=== PATIENT | male | born 1970 | race Caucasian/White ===

== ENCOUNTER 2020-03-02 12:44 | Emergency (ER) | payer BC ==
[2020-03-02 13:34] VITALS: RESP 16; TEMP 98.4
[2020-03-02] MEDS ORDERED: SODIUM CHLORIDE 0.9% 500 ML 500 ML IV ONE (14:00)
--- NOTE | 2020-03-02 14:05 | ED ---
General Adult HPI - General Chief complaint: Headache Stated complaint: headache, not feeling well.. Sent by [employer] Time Seen by Provider: 03/02/20 13:51 Source: patient, RN notes reviewed, old records reviewed Mode of arrival: ambulatory Limitations: no limitations - History of Present Illness Initial comments: 49-year-old male presented for evaluation of headache. Patient had developed a headache 48 hours ago which has nearly completely resolved. He states he was given ago for a run today had some minimal had pressure and his encouraged him to present for evaluation. He started at urgent care and was sent to the emergency department for evaluation of this headache. He states he was exertional, during intercourse and was fairly sudden in onset. Headache gradually improved with rest, no specific treatment. He was nearly headache free at the time of evaluation. Denies focal numbness or weakness. Denies fever. Denies cough. No family history of brain aneurysm. Patient is otherwise healthy. - Related Data Allergies Allergy/AdvReac Type Severity Reaction Status Date / Time clarithromycin [From Biaxin] Allergy Unknown Verified 03/02/20 13:34 Penicillins Allergy Unknown Verified 03/02/20 13:34 Review of Systems ROS Statement: Those systems with pertinent positive or pertinent negative responses have been documented in the HPI. ROS Other: All systems not noted in ROS Statement are negative. Past Medical History Past Medical History: GERD/Reflux Past Surgical History: Tonsillectomy Past Psychological History: No Psychological Hx Reported Smoking Status: Never smoker Past Alcohol Use History: Occasional Past Drug Use History: None Reported General Exam Limitations: no limitations General appearance: alert, in no apparent distress Head exam: Present: atraumatic, normocephalic Eye exam: Present: normal appearance, PERRL ENT exam: Present: normal exam Neck exam: Present: normal inspection. Absent: tenderness, meningismus Respiratory exam: Present: normal lung sounds bilaterally. Absent: respiratory distress, wheezes Cardiovascular Exam: Present: regular rate, normal rhythm GI/Abdominal exam: Present: soft. Absent: distended, tenderness, guarding Extremities exam: Present: normal inspection, normal capillary refill. Absent: pedal edema Neurological exam: Present: alert, oriented X3, CN II-XII intact, other (No ataxia, normal finger to nose, 5 out of 5 strength in all extremities.). Absent: motor sensory deficit Psychiatric exam: Present: normal affect, normal mood Skin exam: Present: warm, dry, intact. Absent: cyanosis, diaphoretic Course Vital Signs 03/02/20 13:31 Temperature 98.4 F Pulse Rate 60 Respiratory 16 Rate Blood Pressure 143/75 O2 Sat by Pulse 98 Oximetry Medical Decision Making - Medical Decision Making Headache. CT was performed which is negative for intracranial hemorrhage or mass effect. CT angiography was performed which is negative for aneurysmal change. Patient has minimal headache, less than 1 out of 10 at the time my eval uation. He will be given outpatient neurology follow-up regarding this headache. If headache returns or is any change he will be presented to the emergency department for evaluation. - Lab Data Result diagrams: 03/02/20 14:17 03/02/20 14:17 Lab Results 03/02/20 03/02/20 Range/Units 14:17 14:17 WBC 5.8 (3.8-10.6) k/uL RBC 5.00 (4.30-5.90) m/uL Hgb 14.1 (13.0-17.5) gm/dL Hct 42.5 (39.0-53.0) % MCV 85.0 (80.0-100.0) fL MCH 28.2 (25.0-35.0) pg MCHC 33.2 (31.0-37.0) g/dL RDW 12.1 (11.5-15.5) % Plt Count 231 (150-450) k/uL Neutrophils % 50 % Lymphocytes % 37 % Monocytes % 6 % Eosinophils % 3 % Basophils % 1 % Neutrophils # 2.9 (1.3-7.7) k/uL Lymphocytes # 2.2 (1.0-4.8) k/uL Monocytes # 0.3 (0-1.0) k/uL Eosinophils # 0.2 (0-0.7) k/uL Basophils # 0.1 (0-0.2) k/uL Sodium 138 (137-145) mmol/L Potassium 4.3 (3.5-5.1) mmol/L Chloride 107 (98-107) mmol/L Carbon Dioxide 23 (22-30) mmol/L Anion Gap 8 mmol/L BUN 15 (9-20) mg/dL Creatinine 0.92 (0.66-1.25) mg/dL Est GFR (CKD-EPI)AfAm >90 (>60 ml/min/1.73 sqM) Est GFR (CKD-EPI)NonAf >90 (>60 ml/min/1.73 sqM) Glucose 97 (74-99) mg/dL Calcium 9.5 (8.4-10.2) mg/dL Disposition Clinical Impression: Headache Disposition: HOME SELF-CARE Condition: Good Instructions (If sedation given, give patient instructions): Acute Headache (ED) Is patient prescribed a controlled substance at d/c from ED?: No Referrals: Zuly Santo MD [Primary Care Provider] - 1-2 days Wandy Villafana MD [REFERRING] - 1-2 days Time of Disposition: 16:11
[2020-03-02 14:26] LABS: Basophils # (A) 0.1 k/uL (0-0.2); Basophils % (A) 1 %; Eosinophils # (A) 0.2 k/uL (0-0.7); Eosinophils % (A) 3 %; HCT 42.5 % (39.0-53.0); HGB 14.1 gm/dL (13.0-17.5); Lymphocytes # (A) 2.2 k/uL (1.0-4.8); Lymphocytes % (A) 37 %; MCH 28.2 pg (25.0-35.0); MCHC 33.2 g/dL (31.0-37.0); Mean Platelet Volume 7.1; Monocytes # (A) 0.3 k/uL (0-1.0); Monocytes % (A) 6 %; Neutrophils # (A) 2.9 k/uL (1.3-7.7); Neutrophils % (A) 50 %; Platelet Count 231 k/uL (150-450); RDW 12.1 % (11.5-15.5); WBC 5.8 k/uL (3.8-10.6)
[2020-03-02 14:40] LABS: African American GFR (CKD) >90 (>60 ml/min/1.73 sqM); Anion Gap 8 mmol/L; Blood Urea Nitrogen 15 mg/dL (9-20); Calcium 9.5 mg/dL (8.4-10.2); Carbon Dioxide 23 mmol/L (22-30); Chloride 107 mmol/L (98-107); Glucose 97 mg/dL (74-99); Non-African American GFR(CKD) >90 (>60 ml/min/1.73 sqM); Potassium 4.3 mmol/L (3.5-5.1); Sodium 138 mmol/L (137-145)
--- NOTE | 2020-03-02 15:26 | CT ---
EXAMINATION TYPE: CT brain wo con DATE OF EXAM: 03/02/2020 COMPARISON: None HISTORY: 49-year-old male Episode of severe pain. Continued pressure and headache TECHNIQUE: Examination was done in axial plane without intravenous contrast. Coronal and sagittal r econstructions performed. CT DLP: 1932.5 mGycm Automated exposure control for dose reduction was used. FINDINGS: There is no evidence of acute intracranial hemorrhage, acute ischemic changes, mass, mass-effect, or extra-axial fluid collection. There is no effacement of cerebral sulci or basal subarachnoid cister ns. There is no hydrocephalus. There is no midline shift. Bolanos-white matter distinction is preserv ed. Some dystrophic dural calcifications along the posterior falx. Paranasal sinuses and mastoid air cells are well pneumatized. Orbits and globes are intact. IMPRESSION: No acute intracranial abnormality seen.
--- NOTE | 2020-03-02 15:31 | CT ---
EXAMINATION TYPE: CT angio COW teller of val[place] DATE OF EXAM: 03/02/2020 COMPARISON: CT brain study earlier today.13 HISTORY: Episode of severe pain. Continued pressure and headache CT DLP: 1932.5 mGycm. Automated Exposure Control for Dose Reduction was Utilized. TECHNIQUE: CTA scan of the head is performed with IV Contrast, patient injected with 100 mL of Isov ue 370. Three-D reconstructed images created on a independent workstation and reviewed. FINDINGS:. Codominant vertebrobasilar system. Patent left posterior communicating artery filling left P2 segment. Hypoplastic right posterior communicating artery. Hypoplastic left P1 segment. Normal va riant. Small caliber distal vertebral basilar system measuring around 2.0 mm axial image 22 for refer ence. Correlate clinically for vertebral basilar insufficiency Anterior circulation shows patent anterior communicating artery sagittal image 16. No significant foc al stenosis or aneurysmal change. IMPRESSION: No aneurysmal change at level of [place].
[2020-03-02 16:25] VITALS: BP 143/80; PULSE 50
== END 2020-03-02 16:25 | disposition home or self-care (01) ==
LOC: EC 12:44
DX: R51 Headache (principal); Z88.0 Allergy status to penicillin; Z88.1 Allergy status to other antibiotic agents
CPT/HCPCS: 36415; 80048; 85025; 70496; 70450; 99284; Q9967

== ENCOUNTER → 2020-09-20 | Outpatient (CLI) | payer BC ==
--- NOTE | 2020-09-20 14:30 | US ---
EXAMINATION TYPE: US scrotum with doppler. Grayscale and color Doppler Duplex imaging performed of dariana muñoz scrotum. DATE OF EXAM: 09/20/2020 COMPARISON: US 2009 CLINICAL HISTORY: N45.1 Epidydimitis W/O abcess. Right testicular pain EXAM MEASUREMENTS: TESTICLES: Right Testicle: 3.8 x 2.1 x 3.0 cm Left Testicle: 3.9 x 2.3 x 2.8 cm EPIDIDYMIS HEAD: Right Epididymis: 1.3 cm Left Epididymis: 1.6 cm Doppler performed to assess for testicular vascularity; good bilateral color flow and waveforms are s een. There is no evidence of testicular torsion. Presence of hydroceles: right 3.0cm, left 2.8cm Presence of varicoceles: no Right epididymis: 0.5cm cyst seen at patient's palpable area IMPRESSION: 1. Right epididymal cyst
== END ==
LOC: RADUSWWP 12:55
PROVIDERS: ATTEND Internal Medicine
DX: N50.3 Cyst of epididymis (principal)
CPT/HCPCS: 76870; 93975

== ENCOUNTER → 2020-12-29 | Outpatient (CLI) | payer BC ==
--- NOTE | 2020-12-29 13:54 | US ---
EXAMINATION TYPE: US kidneys/renal and bladder DATE OF EXAM: 12/29/2020 COMPARISON: NONE CLINICAL HISTORY: N18.1 chronic kidney disease. CKD EXAM MEASUREMENTS: Right Kidney: 10.9 x 4.2 x 4.8 cm Left Kidney: 10.8 x 5.3 x 4.2 cm Right Kidney: No hydronephrosis or masses seen Left Kidney: No hydronephrosis or masses seen Bladder: Anechoic Bilateral Jets seen: no There is no evidence for hydronephrosis at this point in time. No nephrolithiasis is seen. No anthony s are identified. The urinary bladder is anechoic. IMPRESSION: No hydronephrosis.
== END | disposition home or self-care (01) ==
LOC: RADUSWWP 13:23
PROVIDERS: ATTEND Internal Medicine
DX: N18.1 Chronic kidney disease, stage 1 (principal)
CPT/HCPCS: 76770

== ENCOUNTER 2021-05-20 21:55 | Emergency (ER) | payer BC ==
[2021-05-20 22:06] VITALS: BP 135/73; PULSE 67; RESP 18; TEMP 98.2
--- NOTE | 2021-05-20 23:08 | ED ---
General Adult HPI - General Chief complaint: Upper Respiratory Infection Stated complaint: Cough,Congestion Time Seen by Provider: 05/20/21 22:18 Source: patient, RN notes reviewed Mode of arrival: ambulatory Limitations: no limitations - History of Present Illness Initial comments: Patient is a 50-year-old male presenting to emergency Department with complaints of cough and chest congestion over the past week. He denies any fevers or chills. He denies any chest pain or shortness of breath. He states his symptoms are just not getting any better so he came in for evaluation. He has been doing a lot of housework in dealing with mold and is concerned that this is turning into some sort of infection. He denies any abdominal pain, no nausea or vomiting. Denies history of asthma or COPD, is a nonsmoker. He has no further complaints. Vital signs are stable upon arrival. - Related Data Allergies Allergy/AdvReac Type Severity Reaction Status Date / Time clarithromycin [From Biaxin] Allergy Unknown Verified 03/02/20 13:34 Penicillins Allergy Unknown Verified 03/02/20 13:34 Review of Systems ROS Statement: Those systems with pertinent positive or pertinent negative responses have been documented in the HPI. ROS Other: All systems not noted in ROS Statement are negative. Past Medical History Past Medical History: GERD/Reflux History of Any Multi-Drug Resistant Organisms: None Reported Past Surgical History: Tonsillectomy Past Psychological History: No Psychological Hx Reported Smoking Status: Never smoker Past Alcohol Use History: Occasional Past Drug Use History: None Reported General Exam - General Exam Comments Initial Comments: GENERAL: Patient is well-developed and well-nourished. Patient is nontoxic and in no acute distress. HEAD: Atraumatic, normocephalic. EYES: Pupils equal round and reactive to light, extraocular movements intact, sclera anicteric, conjunctiva are normal. Eyelids were unremarkable. ENT: Moist mucous membranes. NECK: Normal range of motion, supple without lymphadenopathy or JVD. LUNGS: Unlabored respirations. Breath sounds clear to auscultation bilaterally and equal. No wheezes rales or rhonchi. HEART: Regular rate and rhythm without murmurs, rubs or gallops. ABDOMEN: Soft, nontender, normoactive bowel sounds. No guarding, no rebound. No masses appreciated. MUSCULOSKELETAL: Normal extremities with adequate strength and normal range of motion, no pitting or edema. No clubbing or cyanosis. NEUROLOGICAL: Patient is alert and oriented x 3. SKIN: Warm, Dry, normal turgor, no rashes or lesions noted. Limitations: no limitations Course Vital Signs 05/20/21 22:00 Temperature 98.2 F Pulse Rate 67 Respiratory 18 Rate Blood Pressure 135/73 O2 Sat by Pulse 97 Oximetry Medical Decision Making - Medical Decision Making Patient is a 50-year-old male here for cough and chest congestion over the past 5 days. No fevers, vital signs are stable. Rapid Covid is negative. Chest x- ray showed no acute abnormality. Discussed his findings with the patient. His most likely viral nature. I recommended [id number] cough suppressant, continue to increase his fluids, take Tylenol or Motrin as needed for any discomfort. Follow-up with primary care as needed. Patient is agreeable to this plan of care and he is stable for discharge. - Lab Data Lab Results 05/20/21 Range/Units 22:07 Coronavirus (PCR) Not Detected (Not Detectd) Disposition Clinical Impression: Viral respiratory illness Disposition: HOME SELF-CARE Condition: Stable Instructions (If sedation given, give patient instructions): Upper Respiratory Infection (ED) Additional Instructions: Please return to the Emergency Department if symptoms worsen or any other concerns. Is patient prescribed a controlled substance at d/c from ED?: No Referrals: Zuly Santo MD [Primary Care Provider] - 1-2 days Time of Disposition: 00:02
--- NOTE | 2021-05-20 23:17 | XR ---
EXAMINATION TYPE: XR chest 2V DATE OF EXAM: 05/20/2021 COMPARISON: 06/10/2012 HISTORY: Cough TECHNIQUE: 2 views FINDINGS: Heart and mediastinum are normal. Lungs are clear. Diaphragm is normal. Bony thorax is inta ct. IMPRESSION: Normal chest. No change.
== END 2021-05-21 00:07 | disposition home or self-care (01) ==
LOC: EC 21:55
DX: J06.9 Acute upper respiratory infection, unspecified (principal); K21.9 Gastro-esophageal reflux disease without esophagitis; Z20.822 Contact with and (suspected) exposure to COVID-19; Z88.0 Allergy status to penicillin; Z88.1 Allergy status to other antibiotic agents; Z90.89 Acquired absence of other organs
CPT/HCPCS: 71046; 87635; 99283

== ENCOUNTER 2021-06-06 18:10 | Emergency (ER) | payer BC ==
[2021-06-06 19:12] VITALS: TEMP 98.4
--- NOTE | 2021-06-06 19:33 | XR ---
EXAMINATION TYPE: XR finger LT DATE OF EXAM: 06/06/2021 COMPARISON: None HISTORY: Crush injury TECHNIQUE: 3 view left index finger FINDINGS: There is a fracture of the tuft of the index finger distal phalanx. No additional fractures are evident. Joint spaces are preserved. Some soft tissue prominence over the fracture site. IMPRESSION: 1. Fracture of the tuft of the index finger
[2021-06-06] MEDS ORDERED: DIPH,PERTUS(ACELL)TETVAC-LF 0.5 ML VIAL IM ONE (21:44)
--- NOTE | 2021-06-06 21:48 | ED ---
Upper Extremity HPI - General Chief Complaint: Extremity Injury, Upper Stated Complaint: finger injury Time Seen by Provider: 06/06/21 21:04 Source: patient Mode of arrival: ambulatory Limitations: no limitations - History of Present Illness Initial Comments: This patient is 51-year-old man who states that his left second finger was injured while working on his automatic gradually door slinger. Denies numbness of the extremity. Complaint: Injury to:: left, finger Onset/Timin -: hour(s) Other Extremity Injury: Fingers: Left Other Injuries: none Handedness: right Place: home Improves With: none Worsens With: movement of extremity Context: crush Associated Symptoms: denies other symptoms - Related Data Previous Rx's Medication Instructions Recorded Clindamycin [Cleocin] 150 mg PO Q6H #28 capsule 06/06/21 HYDROcodone/APAP 5-325MG [[place] 1 tab PO Q4HR PRN 3 Days #18 tab 06/06/21 5-325] Allergies Allergy/AdvReac Type Severity Reaction Status Date / Time clarithromycin [From Biaxin] Allergy Unknown Verified 03/02/20 13:34 Penicillins Allergy Unknown Verified 03/02/20 13:34 Review of Systems ROS Statement: Those systems with pertinent positive or pertinent negative responses have been documented in the HPI. ROS Other: All systems not noted in ROS Statement are negative. Constitutional: Denies: fever Respiratory: Denies: dyspnea Cardiovascular: Denies: chest pain, palpitations Musculoskeletal: Reports: as per HPI, other (Left second finger injury) Skin: Reports: other (Nail bed injury) Neurological: Denies: weakness, numbness Hematological/Lymphatic: Denies: easy bleeding Past Medical History Past Medical History: GERD/Reflux History of Any Multi-Drug Resistant Organisms: None Reported Past Surgical History: Tonsillectomy Past Psychological History: No Psychological Hx Reported Smoking Status: Never smoker Past Alcohol Use History: Occasional Past Drug Use History: None Reported General Exam Limitations: no limitations General appearance: alert, in no apparent distress Head exam: Present: atraumatic, normocephalic Cardiovascular Exam: Present: other (Normal pulses throughout the left hand. Capillary refill is intact.) Left Forearm Wrist exam: Present: normal inspection, full ROM. Absent: tenderness, swelling Hand Wrist exam: Present: full ROM, other (There is laceration through the nailbed of the left second digit. There is swelling of the distal digit. Capillary refill, sensation and motor are intact.) Neurosensory exam: Present: 2-point discrimination Vascular: Present: normal capillary refill. Absent: vascular compromise Neurological exam: Absent: motor sensory deficit Skin exam: Present: warm, dry, other (laceration as above) Course Vital Signs 06/06/21 06/06/21 19:08 22:34 Temperature 98.4 F Pulse Rate 67 61 Respiratory 19 20 Rate Blood Pressure 133/52 148/75 O2 Sat by Pulse 97 100 Oximetry Medical Decision Making - Medical Decision Making Case is discussed with orthopedics tectonophysicist. Digit is irrigated with antibacterial solution. Nonadhesive dressing is applied and tube gauze applied over that. They will follow with the patient in clinic for further repair. Given that the fracture is open, patient is given antibiotics and prescription to continue. Discussed appropriate follow-up as well as return parameters. Disposition Clinical Impression: Open fracture of tuft of distal phalanx of finger Disposition: HOME SELF-CARE Condition: Good Instructions (If sedation given, give patient instructions): Finger Fracture (ED) Prescriptions: Clindamycin [Cleocin] 150 mg PO Q6H #28 capsule HYDROcodone/APAP 5-325MG [[place] 5-325] 1 tab PO Q4HR PRN 3 Days #18 tab PRN Reason: Pain Is patient prescribed a controlled substance at d/c from ED?: Yes When asked, does pt state using other controlled substances?: No If prescribed controlled substance>3 days was MAPS reviewed?: Prescribed <3 Days If opioid is for acute pain is fill amount 7 days or less?: Yes If Rx opioid, was Start Talking consent form obtained?: Yes Referrals: Zuly Santo MD [Primary Care Provider] - 1-2 days [place] Anne DO [Doctor of Osteopathic Medicine] - 1-2 days
[2021-06-06] MEDS ORDERED: ONDANSETRON ODT 4 MG TAB PO STA (22:06)
[2021-06-06] MEDS ORDERED: CLINDAMYCIN 150 MG CAP PO STA (22:06)
[2021-06-06] MEDS ORDERED: BACITRACIN OINT 1 EACH PACKET TOPICAL ONE (22:08)
[2021-06-06 22:36] VITALS: BP 148/75; PULSE 61; RESP 20
== END 2021-06-06 22:36 | disposition home or self-care (01) ==
LOC: EC 18:10
DX: S62.631B Displaced fracture of distal phalanx of left index finger, initial encounter for open fracture (principal); Z88.0 Allergy status to penicillin; Z88.1 Allergy status to other antibiotic agents; W23.0XXA Caught, crushed, jammed, or pinched between moving objects, initial encounter; Y92.009 Unspecified place in unspecified non-institutional (private) residence as the place of occurrence of the external cause
CPT/HCPCS: 90471; 90715; 99283

== ENCOUNTER 2022-05-13 23:02 | Emergency (ER) | payer BC ==
[2022-05-13 23:09] VITALS: TEMP 97.7
[2022-05-13] MEDS ORDERED: SODIUM CHLORIDE 0.9% 1,000 ML IV STA (23:24)
--- NOTE | 2022-05-13 23:27 | ED ---
Arrhythmia/Palpitations HPI - General Chief Complaint: Arrhythmia/Palpitations Stated Complaint: Irregular Heart Rate Time Seen by Provider: 05/13/22 23:24 Source: patient, RN notes reviewed, old records reviewed Mode of arrival: ambulatory Limitations: no limitations - History of Present Illness Initial Comments: This is a 51-year-old male to the emergency department for evaluation patient and today for evaluation of palpitations palpitations elevated heart rate making and concern a little bit more stress recently. No medications no travel history no sick contacts no other significant complaints. Patient no drugs or alcohol. MD Complaint: rapid heart beat, "heart racing", "skipped beats", palpitations -: days(s) Context: occurred during rest, occurred during exertion Arrhythmia History: other (Palpitations) Associated Symptoms: chest pain Treatments Prior to Arrival: other (0) - Related Data Previous Rx's Medication Instructions Recorded Clindamycin [Cleocin] 150 mg PO Q6H #28 capsule 06/06/21 HYDROcodone/APAP 5-325MG [[place] 1 tab PO Q4HR PRN 3 Days #18 tab 06/06/21 5-325] Allergies Allergy/AdvReac Type Severity Reaction Status Date / Time clarithromycin [From Biaxin] Allergy Unknown Verified 03/02/20 13:34 Penicillins Allergy Unknown Verified 03/02/20 13:34 Review of Systems ROS Statement: Those systems with pertinent positive or pertinent negative responses have been documented in the HPI. ROS Other: All systems not noted in ROS Statement are negative. Past Medical History Past Medical History: GERD/Reflux History of Any Multi-Drug Resistant Organisms: None Reported Past Surgical History: Tonsillectomy Past Psychological History: No Psychological Hx Reported Smoking Status: Never smoker Past Alcohol Use History: Occasional Past Drug Use History: None Reported General Exam Limitations: no limitations General appearance: alert, in no apparent distress Head exam: Present: atraumatic, normocephalic, normal inspection Eye exam: Present: normal appearance, PERRL, EOMI. Absent: scleral icterus, conjunctival injection, periorbital swelling ENT exam: Present: normal exam, mucous membranes moist Neck exam: Present: normal inspection. Absent: tenderness, meningismus, lymphadenopathy Respiratory exam: Present: normal lung sounds bilaterally. Absent: respiratory distress, wheezes, rales, rhonchi, stridor Cardiovascular Exam: Present: regular rate, normal rhythm, normal heart sounds. Absent: systolic murmur, diastolic murmur, rubs, gallop, clicks GI/Abdominal exam: Present: soft, normal bowel sounds. Absent: distended, tenderness, guarding, rebound, rigid Extremities exam: Present: normal inspection, full ROM, normal capillary refill. Absent: tenderness, pedal edema, joint swelling, calf tenderness Back exam: Present: normal inspection Neurological exam: Present: alert, oriented X3, CN II-XII intact Psychiatric exam: Present: normal affect, normal mood Skin exam: Present: warm, dry, intact, normal color. 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 ] Respiratory 16 17 Rate Blood Pressure 134/73 131/83 O2 Sat by Pulse 97 98 Oximetry - Reevaluation(s) Reevaluation #1: 05/14/22 01:08 Records reviewed Reevaluation #2: 05/14/22 01:08 Patient resting comfortably has not had symptoms throughout ER stay no chest pain Reevaluation #3: 05/14/22 01:08 Patient informed results questions are answered EKG Findings - EKG Comments: EKG Findings:: EKG shows sinus rhythm 74 TX 149 QRS 97 QTc 400, interpreted by me Medical Decision Making - Medical Decision Making 51-year-old male to the emergency department for evaluation of palpitations chest pain, patient is no acute findings here in the ER no arrhythmia on monitor EKG is normal patient can be discharged home - Lab Data Result diagrams: 05/13/22 23:25 05/13/22 23:25 Lab Results 05/13/22 05/13/22 05/13/22 Range/Units 23:25 23:25 23:25 WBC 8.3 (3.8-10.6) k/uL RBC 5.04 (4.30-5.90) m/uL Hgb 15.0 (13.0-17.5) gm/dL Hct 42.8 (39.0-53.0) % MCV 84.8 (80.0-100.0) fL MCH 29.7 (25.0-35.0) pg MCHC 35.1 (31.0-37.0) g/dL RDW 11.9 (11.5-15.5) % Plt Count 236 (150-450) k/uL MPV 7.4 Neutrophils % 50 % Lymphocytes % 38 % Monocytes % 5 % Eosinophils % 3 % Basophils % 1 % Neutrophils # 4.1 (1.3-7.7) k/uL Lymphocytes # 3.1 (1.0-4.8) k/uL Monocytes # 0.4 (0-1.0) k/uL Eosinophils # 0.3 (0-0.7) k/uL Basophils # 0.1 (0-0.2) k/uL PT 11.2 (9.0-12.0) sec INR 1.0 (<1.2) APTT 23.9 (22.0-30.0) sec Sodium 140 (137-145) mmol/L Potassium 4.1 (3.5-5.1) mmol/L Chloride 104 (98-107) mmol/L Carbon Dioxide 25 (22-30) mmol/L Anion Gap 11 mmol/L BUN 13 (9-20) mg/dL Creatinine 1.18 (0.66-1.25) mg/dL Est GFR (CKD-EPI)AfAm 83 (>60 ml/min/1.73 sqM) Est GFR (CKD-EPI)NonAf 72 (>60 ml/min/1.73 sqM) Glucose 105 H (74-99) mg/dL Plasma Lactic Acid Javier (0.7-2.0) mmol/L Calcium 9.5 (8.4-10.2) mg/dL Phosphorus 3.7 (2.5-4.5) mg/dL Magnesium 2.0 (1.6-2.3) mg/dL Total Bilirubin 0.5 (0.2-1.3) mg/dL AST 39 (17-59) U/L ALT 66 H (4-49) U/L Alkaline Phosphatase 77 (38-126) U/L Troponin I (0.000-0.034) ng/mL NT-Pro-B Natriuret Pep pg/mL Total Protein 7.5 (6.3-8.2) g/dL Albumin 4.9 (3.5-5.0) g/dL TSH 3.060 (0.465-4.680) mIU/L 11/07/22 11/07/22 11/07/22 Range/Units 23:25 23:25 23:25 WBC (3.8-10.6) k/uL RBC (4.30-5.90) m/uL Hgb (13.0-17.5) gm/dL Hct (39.0-53.0) % MCV (80.0-100.0) fL MCH (25.0-35.0) pg MCHC (31.0-37.0) g/dL RDW (11.5-15.5) % Plt Count (150-450) k/uL MPV Neutrophils % % Lymphocytes % % Monocytes % % Eosinophils % % Basophils % % Neutrophils # (1.3-7.7) k/uL Lymphocytes # (1.0-4.8) k/uL Monocytes # (0-1.0) k/uL Eosinophils # (0-0.7) k/uL Basophils # (0-0.2) k/uL PT (9.0-12.0) sec INR (<1.2) APTT (22.0-30.0) sec Sodium (137-145) mmol/L Potassium (3.5-5.1) mmol/L Chloride (98-107) mmol/L Carbon Dioxide (22-30) mmol/L Anion Gap mmol/L BUN (9-20) mg/dL Creatinine (0.66-1.25) mg/dL Est GFR (CKD-EPI)AfAm (>60 ml/min/1.73 sqM) Est GFR (CKD-EPI)NonAf (>60 ml/min/1.73 sqM) Glucose (74-99) mg/dL Plasma Lactic Acid [place] 1.2 (0.7-2.0) mmol/L Calcium (8.4-10.2) mg/dL Phosphorus (2.5-4.5) mg/dL Magnesium (1.6-2.3) mg/dL Total Bilirubin (0.2-1.3) mg/dL AST (17-59) U/L ALT (4-49) U/L Alkaline Phosphatase (38-126) U/L Troponin I <0.012 (0.000-0.034) ng/mL NT-Pro-B Natriuret Pep 15 pg/mL Total Protein (6.3-8.2) g/dL Albumin (3.5-5.0) g/dL TSH (0.465-4.680) mIU/L Disposition Clinical Impression: Palpitations Disposition: HOME SELF-CARE Condition: Good Instructions (If sedation given, give patient instructions): Heart Palpitations (ED) Is patient prescribed a controlled substance at d/c from ED?: No Referrals: Zuly Santo MD [Primary Care Provider] - 1-2 days Time of Disposition: 01:05
[2022-05-13 23:39] LABS: Basophils # (A) 0.1 k/uL (0-0.2); Basophils % (A) 1 %; Eosinophils # (A) 0.3 k/uL (0-0.7); Eosinophils % (A) 3 %; HCT 42.8 % (39.0-53.0); Lymphocytes # (A) 3.1 k/uL (1.0-4.8); Lymphocytes % (A) 38 %; MCH 29.7 pg (25.0-35.0); MCHC 35.1 g/dL (31.0-37.0); MCV 84.8 fL (80.0-100.0); Mean Platelet Volume 7.4; Monocytes # (A) 0.4 k/uL (0-1.0); Monocytes % (A) 5 %; Neutrophils # (A) 4.1 k/uL (1.3-7.7); Neutrophils % (A) 50 %; Platelet Count 236 k/uL (150-450); RBC 5.04 m/uL (4.30-5.90); RDW 11.9 % (11.5-15.5); WBC 8.3 k/uL (3.8-10.6)
[2022-05-13 23:53] LABS: Partial Thromboplastin Time 23.9 sec (22.0-30.0); Prothrombin Time 11.2 sec (9.0-12.0)
[2022-05-13 23:59] LABS: Albumin 4.9 g/dL (3.5-5.0); Calcium 9.5 mg/dL (8.4-10.2); Phosphorus 3.7 mg/dL (2.5-4.5); Total Bilirubin 0.5 mg/dL (0.2-1.3); Total Protein 7.5 g/dL (6.3-8.2)
[2022-05-14 00:49] LABS: Potassium 4.1 mmol/L (3.5-5.1)
[2022-05-14 01:19] VITALS: BP 128/76; PULSE 74; RESP 16
== END 2022-05-14 01:35 | disposition home or self-care (01) ==
LOC: EC 23:02
DX: R00.2 Palpitations (principal); K21.9 Gastro-esophageal reflux disease without esophagitis; Z88.1 Allergy status to other antibiotic agents; Z88.0 Allergy status to penicillin
CPT/HCPCS: 36415; 80053; 83605; 83735; 83880; 84100; 84443; 84484; 85025; 85610; 85730; 93005; 96360; 99285

== ENCOUNTER 2022-07-11 07:59 | Emergency (ER) | payer BC ==
[2022-07-11 08:06] VITALS: RESP 18
[2022-07-11 08:26] LABS: Basophils # (A) 0.1 k/uL (0-0.2); Basophils % (A) 1 %; Eosinophils # (A) 0.3 k/uL (0-0.7); Eosinophils % (A) 4 %; HCT 41.9 % (39.0-53.0); HGB 14.4 gm/dL (13.0-17.5); Lymphocytes # (A) 1.6 k/uL (1.0-4.8); Lymphocytes % (A) 21 %; MCH 29.3 pg (25.0-35.0); MCHC 34.5 g/dL (31.0-37.0); Mean Platelet Volume 7.7; Monocytes # (A) 0.4 k/uL (0-1.0); Monocytes % (A) 5 %; Neutrophils # (A) 5.4 k/uL (1.3-7.7); Neutrophils % (A) 68 %; Platelet Count 211 k/uL (150-450); RBC 4.92 m/uL (4.30-5.90); RDW 11.9 % (11.5-15.5); WBC 7.9 k/uL (3.8-10.6)
--- NOTE | 2022-07-11 08:30 | XR ---
EXAMINATION TYPE: XR chest 2V DATE OF EXAM: 07/11/2022 8:26 AM COMPARISON: Chest radiographs from 05/20/2021 TECHNIQUE: XR chest 2V Frontal and lateral views of the chest. CLINICAL INDICATION:Male, 52 years old with history of dysrhythmia; FINDINGS: Lungs/Pleura: There is no evidence of pleural effusion, focal consolidation, or pneumothorax. Pulmonary vascularity: Unremarkable. Heart/mediastinum: Cardiomediastinal silhouette is unremarkable. Musculoskeletal: No acute osseous pathology. IMPRESSION: No acute cardiopulmonary disease/process.
[2022-07-11 08:32] LABS: Prothrombin Time 10.9 sec (9.0-12.0)
[2022-07-11 08:41] LABS: ALT 48 U/L (4-49); AST 33 U/L (17-59); African American GFR (CKD) >90 (>60 ml/min/1.73 sqM); Albumin 4.6 g/dL (3.5-5.0); Alkaline Phosphatase 75 U/L (38-126); Anion Gap 7 mmol/L; Blood Urea Nitrogen 15 mg/dL (9-20); Calcium 9.2 mg/dL (8.4-10.2); Carbon Dioxide 25 mmol/L (22-30); Chloride 104 mmol/L (98-107); Glucose 136 mg/dL (74-99); Magnesium 1.8 mg/dL (1.6-2.3); Non-African American GFR(CKD) >90 (>60 ml/min/1.73 sqM); Potassium 3.8 mmol/L (3.5-5.1); Sodium 136 mmol/L (137-145); Total Bilirubin 0.7 mg/dL (0.2-1.3); Total Protein 7.3 g/dL (6.3-8.2)
--- NOTE | 2022-07-11 10:00 | ED ---
Arrhythmia/Palpitations HPI - General Chief Complaint: Arrhythmia/Palpitations Stated Complaint: palpitations Time Seen by Provider: 07/11/22 08:02 Source: patient, EMS, RN notes reviewed Mode of arrival: EMS Limitations: no limitations - History of Present Illness Initial Comments: Patient is a 52-year-old male presenting to the emergency room via EMS from work with complaints of his heart racing with associated shortness of breath and chest tightening along with dizziness and clammy feeling. Upon arrival to the emergency room he no longer had these symptoms but did still continue to feel "jittery." He reports that his primary care provider recently restarted his ADHD medication but change the medication to Vyvanse 2 days was the first day he took the medication. He also tells some last night for a cough as he has been suffering from cough and congestion that is slowly improving since around [place] time. In regards to the cough and congestion he did report having a fever the first day of symptoms and taking a home COVID test. The Covid test was negative. He no longer has any fevers. At this time he denies any chest pain, tachycardia, shortness of breath, dizziness, diaphoresis, clamminess, altered mental status, headache, fevers or chills. He states that he at one point did have some high blood pressure but is not currently being treated for hypertension. He reports that cardiology Dr. Poole evaluated him prior to resuming his ADHD medication. He has not previously had any abnormal responses to any stimulants before. In addition to his ADHD history he has a past medical history significant for GERD. - Related Data Previous Rx's Medication Instructions Recorded Clindamycin [Cleocin] 150 mg PO Q6H #28 capsule 06/06/21 HYDROcodone/APAP 5-325MG [[place] 1 tab PO Q4HR PRN 3 Days #18 tab 06/06/21 5-325] Allergies Allergy/AdvReac Type Severity Reaction Status Date / Time clarithromycin [From Biaxin] Allergy Unknown Verified 03/02/20 13:34 Penicillins Allergy Unknown Verified 03/02/20 13:34 Review of Systems ROS Statement: Those systems with pertinent positive or pertinent negative responses have been documented in the HPI. ROS Other: All systems not noted in ROS Statement are negative. Past Medical History Past Medical History: GERD/Reflux History of Any Multi-Drug Resistant Organisms: None Reported Past Surgical History: Tonsillectomy Past Psychological History: No Psychological Hx Reported Smoking Status: Never smoker Past Alcohol Use History: Occasional Past Drug Use History: None Reported General Exam - General Exam Comments Initial Comments: GENERAL: No acute distress, well developed, well nourished. HEENT: Normocephalic, atraumatic. Pupils equal, round, reactive to light. Moist mucous membranes. LUNGS: No respiratory distress. Clear to auscultation, no adventitious sounds, no use of accessory muscles. HEART: Regular rate and rhythm without murmur, rub, or gallop. ABDOMEN: Normal bowel sounds. Soft, non-tender, non-distended. BACK: Normal inspection. EXTREMITIES: No edema. No tenderness. Moves all extremities. NEUROLOGIC: Alert & oriented x 3. CN II-XII grossly intact. PSYCHIATRIC: Normal affect and behavior. DERMATOLOGIC: Skin intact, without rashes or lesions noted. Limitations: no limitations Course Vital Signs 07/11/22 07/11/22 08:00 10:19 Temperature 98.1 F Pulse Rate 69 68 Respiratory 18 18 Rate Blood Pressure 144/104 133/87 O2 Sat by Pulse 98 96 Oximetry Medical Decision Making - Medical Decision Making Was pt. sent in by a medical professional or institution? @ -His employer Did you speak to anyone other than the patient for history? @ -EMS report Did you review nursing and triage notes? @ -Yes and agree Were old charts reviewed? @ -Previous EKG Differential Diagnosis? @ -Differential Chest Pain: Stable Angina, Unstable Angina, STEMI, NSTEMI Aortic Dissection, Pneumothorax, Musculoskeletal, Esophageal Spasm GERD, Cholecystitis, Pancreatitis, Zoster, this is not meant to be an all-inclusive list. EKG interpreted by me (3pts min.)? @ -EKG interpreted by me demonstrates sinus rhythm, ventricular rate 67 bpm, AK interval 151 seconds, QRS duration 92 ms, QT/QTC 369/384 ms, PRT axes 59, 54, 16 X-rays interpreted by me (1pt min.)? @ -Chest x-ray 2 views interpreted by me demonstrates no infiltrate, consolidation or cardiomegaly. No acute cardio/pulmonary process. Radiologist report also reviewed. CT interpreted by me (1pt min.)? @ -None U/S interpreted by me (1pt. min.)? @ -None What testing was considered but not performed? (CT, X-rays, U/S, labs)? Why? @-None What meds were considered but not given? Why? @ -Aspirin considered but not given in the setting of lack of symptoms upon arrival to the emergency department along with known stimulant ingestion. Did you discuss the management of the patient with other professionals? @ -No Did you reconcile home meds? @ -Reviewed but not reconciled Was smoking cessation discussed for >3mins.? @ -Now, nonsmoker Was critical care preformed (if so, how long)? @ -None Were there social determinants of health that impacted care today? How? (Homelessness, low income, unemployed, alcoholism, drug addiction, transportation, low edu. Level, literacy, decrease access to med. care, [facility], rehab)? @ -No Was there de-escalation of care discussed even if they declined? (Discuss DNR or withdrawal of care, Hospice)? @ -No What co-morbidities impacted this encounter? (DM, HTN, Smoking, COPD, CAD, Cancer, CVA, Hep., AIDS, mental health diagnosis, sleep apnea, morbid obesity)? @ -Mental health Was patient admitted / discharged? @ -Patient brought to the hospital [facility] for complaints of chest pain, shortness breath, palpitations, clamminess and dizziness all resolved upon arrival to the emergency room with new stimulant medication taken today. Given risk factors Will workup for ACS with chest x-ray, EKG, CBC, CMP, magnesium and troponin along with urine drug screen. No indication for any medications at this time his symptoms have resolved. Will monitor. Troponin negative, CBC unremarkable, CMP revealed sodium 136 otherwise April is within normal limits. Glucose slightly elevated at 136. Coags normal. EKG demonstrates sinus rhythm. Chest x-ray without acute cardiopulmonary process. No indication for further diagnostic testing or laboratory studies. Education regarding stimulant and stimulant avoidance discussed. Will discharge home in stable condition advising to avoid stimulant usage and hold ADHD medication at this time until follow-up with primary care provider. Undiagnosed new problem with uncertain prognosis? @ -None Drug Therapy requiring intensive monitoring for toxicity (Heparin, Nitro, Insulin, Cardizem)? @ -None Were any procedures done? @ -None Diagnosis/symptom? @ -Palpitations Acute, or Chronic, or Acute on Chronic? @ -Acute Uncomplicated (without systemic symptoms) or Complicated (systemic symptoms)? @ -Uncomplicated Side effects of treatment? @ -Yes side effects from ADHD medication none from trearment provided during ER visit. Exacerbation, Progression, or Severe Exacerbation] @ -No Poses a threat to life or bodily function? @ -No Case discussed with Dr. Robbins - Lab Data Result diagrams: 07/11/22 08:14 07/11/22 08:14 Lab Results 07/11/22 07/11/22 07/11/22 Range/Units 08:14 08:14 08:14 WBC 7.9 (3.8-10.6) k/uL RBC 4.92 (4.30-5.90) m/uL Hgb 14.4 (13.0-17.5) gm/dL Hct 41.9 (39.0-53.0) % MCV 85.0 (80.0-100.0) fL MCH 29.3 (25.0-35.0) pg MCHC 34.5 (31.0-37.0) g/dL RDW 11.9 (11.5-15.5) % Plt Count 211 (150-450) k/uL MPV 7.7 Neutrophils % 68 % Lymphocytes % 21 % Monocytes % 5 % Eosinophils % 4 % Basophils % 1 % Neutrophils # 5.4 (1.3-7.7) k/uL Lymphocytes # 1.6 (1.0-4.8) k/uL Monocytes # 0.4 (0-1.0) k/uL Eosinophils # 0.3 (0-0.7) k/uL Basophils # 0.1 (0-0.2) k/uL PT (9.0-12.0) sec INR (<1.2) Sodium 136 L (137-145) mmol/L Potassium 3.8 (3.5-5.1) mmol/L Chloride 104 (98-107) mmol/L Carbon Dioxide 25 (22-30) mmol/L Anion Gap 7 mmol/L BUN 15 (9-20) mg/dL Creatinine 0.98 (0.66-1.25) mg/dL Est GFR (CKD-EPI)AfAm >90 (>60 ml/min/1.73 sqM) Est GFR (CKD-EPI)NonAf >90 (>60 ml/min/1.73 sqM) Glucose 136 H (74-99) mg/dL Calcium 9.2 (8.4-10.2) mg/dL Magnesium 1.8 (1.6-2.3) mg/dL Total Bilirubin 0.7 (0.2-1.3) mg/dL AST 33 (17-59) U/L ALT 48 (4-49) U/L Alkaline Phosphatase 75 (38-126) U/L Troponin I <0.012 (0.000-0.034) ng/mL Total Protein 7.3 (6.3-8.2) g/dL Albumin 4.6 (3.5-5.0) g/dL 07/11/22 Range/Units 08:15 WBC (3.8-10.6) k/uL RBC (4.30-5.90) m/uL Hgb (13.0-17.5) gm/dL Hct (39.0-53.0) % MCV (80.0-100.0) fL MCH (25.0-35.0) pg MCHC (31.0-37.0) g/dL RDW (11.5-15.5) % Plt Count (150-450) k/uL MPV Neutrophils % % Lymphocytes % % Monocytes % % Eosinophils % % Basophils % % Neutrophils # (1.3-7.7) k/uL Lymphocytes # (1.0-4.8) k/uL Monocytes # (0-1.0) k/uL Eosinophils # (0-0.7) k/uL Basophils # (0-0.2) k/uL PT 10.9 (9.0-12.0) sec INR 1.0 (<1.2) Sodium (137-145) mmol/L Potassium (3.5-5.1) mmol/L Chloride (98-107) mmol/L Carbon Dioxide (22-30) mmol/L Anion Gap mmol/L BUN (9-20) mg/dL Creatinine (0.66-1.25) mg/dL Est GFR (CKD-EPI)AfAm (>60 ml/min/1.73 sqM) Est GFR (CKD-EPI)NonAf (>60 ml/min/1.73 sqM) Glucose (74-99) mg/dL Calcium (8.4-10.2) mg/dL Magnesium (1.6-2.3) mg/dL Total Bilirubin (0.2-1.3) mg/dL AST (17-59) U/L ALT (4-49) U/L Alkaline Phosphatase (38-126) U/L Troponin I (0.000-0.034) ng/mL Total Protein (6.3-8.2) g/dL Albumin (3.5-5.0) g/dL - Radiology Data Radiology results: report reviewed, image reviewed Disposition Clinical Impression: Palpitations Disposition: HOME SELF-CARE Condition: Stable Instructions (If sedation given, give patient instructions): Heart Palpitations (ED) Additional Instructions: It is recommended that you avoid stimulants and follow-up with your primary care provider and planner internship prior to resumption of ADHD medication. Good hydration encouraged. Please return to the Emergency Department if symptoms worsen or any other concerns. Is patient prescribed a controlled substance at d/c from ED?: No Referrals: Zuly Santo MD [Primary Care Provider] - 1-2 days Time of Disposition: 09:59
[2022-07-11 10:21] VITALS: BP 133/87; PULSE 68; TEMP 98.1
[2022-07-11 11:00] LABS: Amphetamine Screen,Urine Detected (NotDetected); Barbiturate Screen,Urine Not Detected (NotDetected); Benzodiazepines Screen,Urine Not Detected (NotDetected); Cocaine Screen,Urine Not Detected (NotDetected); Methadone Screen, Urine Not Detected (NotDetected); Opiate Screen,Urine Not Detected (NotDetected); Oxycodone Screen, Urine Not Detected (NotDetected); Phencyclidine Screen,Urine Not Detected (NotDetected); Tricyclic Antidepressant,Urine Not Detected (NotDetected); Urn Cannabinoid Scrn Not Detected (NotDetected)
== END 2022-07-11 10:25 | disposition home or self-care (01) ==
LOC: EC 07:59
DX: R00.2 Palpitations (principal); Z88.1 Allergy status to other antibiotic agents; Z88.0 Allergy status to penicillin
CPT/HCPCS: 36415; 71046; 80053; 80306; 83735; 84484; 85025; 85610; 93005; 99285

== ENCOUNTER 2024-09-21 08:36 | Day surgery (SDC) | payer BC ==
[2024-09-17 15:06] VITALS: BMI 30.4
[~2024-09-21 08:36] MED LIST: LACTATED RINGERS 1,000 ML IV SCH
[2024-09-21] MEDS: IV FLUID CONTINUATION 1,000 ML IV ONE (09:08)
[2024-09-21 09:30] VITALS: RESP 16; TEMP 97.4
[2024-09-21] MEDS ORDERED: LIDOCAINE 1% INJ 10MG/ML (20 ML MDV) ONE (09:30)
[2024-09-21] MEDS ORDERED: PROPOFOL 10 MG/ML 20 ML VIAL IV ONE (09:30)
--- NOTE | 2024-09-21 09:37 | P.GSHP ---
History of Present Illness H&P Date: 09/21/24 Chief Complaint: Colon cancer screening 54-year-old male here for colonoscopy. Last colonoscopy about 7 years ago or so. He believes that was normal. History of diverticulitis. No family history of colon cancer. Past Medical History Past Medical History: GERD/Reflux, Hyperlipidemia, Hypertension Additional Past Medical History / Comment(s): SEASONAL ALLERGIES, HEART ARRTHYMIA, History of Any Multi-Drug Resistant Organisms: None Reported Past Surgical History: Tonsillectomy Additional Past Surgical History / Comment(s): COLONOSCOPY, LT FOREFINGER NAILBED REPAIR, Past Anesthesia/Blood Transfusion Reactions: Previous Problems w/ Anesthesia Additional Past Anesthesia/Blood Transfusion Reaction / Comment(s): SLOW TO COME OUT OF ANESTHESIA Smoking Status: Never smoker - Past Family History Father Family Medical History: Cancer Medications and Allergies Home Medications Medication Instructions Recorded Confirmed Type Aspirin EC [Ecotrin Low Dose] 81 mg PO DAILY 09/17/24 09/21/24 History Cetirizine HCl [Zyrtec] 10 mg PO DAILY 09/17/24 09/21/24 History Esomeprazole Magnesium [NexIUM] 40 mg PO HS 09/17/24 09/21/24 History Ezetimibe [Zetia] 10 mg PO HS 09/17/24 09/21/24 History Multivit,Calc,Min/FA/K1/Lycop 1 each PO DAILY 09/17/24 09/21/24 History [One-A-Day Men's Complete Tab] Rosuvastatin [Crestor] 10 mg PO HS 09/17/24 09/21/24 History amLODIPine [Norvasc] 5 mg PO BID 09/17/24 09/21/24 History busPIRone HCl [Buspar] 5 mg PO BID 09/17/24 09/21/24 History Allergies Allergy/AdvReac Type Severity Reaction Status Date / Time clarithromycin [From Biaxin] Allergy Rash/Hives Verified 09/21/24 09:09 Penicillins Allergy Rash/Hives Verified 09/21/24 09:09 Surgical - Exam Vital Signs Temp Pulse Resp BP Pulse Ox 97.4 F L 60 16 126/79 96 09/21/24 09:29 09/21/24 09:29 09/21/24 09:29 09/21/24 09:29 09/21/24 09:29 Physical exam: General: Well-developed, well-nourished HEENT: Normocephalic, sclerae nonicteric Abdomen: Nontender, nondistended Extremities: No edema Neuro: Alert and oriented Assessment and Plan (1) Colon cancer screening Narrative/Plan: Will proceed with colonoscopy at this time. Current Visit: Yes Status: Acute Code(s): Z12.11 - ENCOUNTER FOR SCREENING FOR MALIGNANT NEOPLASM OF COLON SNOMED Code(s): 650820259
--- NOTE | 2024-09-21 09:50 | P.PCN ---
Date of Procedure: 09/21/24 Procedure(s) Performed: PREOPERATIVE DIAGNOSIS: Colon cancer screening POSTOPERATIVE DIAGNOSIS: Ascending colon polyp, diverticulosis PROCEDURE: Colonoscopy with biopsy ANESTHESIA: MAC SURGEON: Justino Macdonald M.D. SPECIMENS: Polyp ENDOSCOPIC PROCEDURE: The patient was placed on the endoscopy table in the left decubitus position. The Olympus colonoscope was inserted into the anus and passed under direct visualization to the base of the cecum. The appendiceal orifice was visualized. From that point the scope was slowly withdrawn inspecting all surfaces carefully. There were no neoplastic inflammatory or polypoid lesions throughout the cecum. In the ascending colon there was a small polyp measuring about 3 to 4 mm in size. This was removed using a cold biopsy forceps. The remainder of the ascending transverse descending sigmoid and rectum appeared normal. There was mild left-sided diverticulosis. Digital rectal examination was normal. The patient was taken to the recovery room in stable condition per anesthesia guidelines. RECOMMENDATIONS: Await biopsy results. Will contact patient with timing of next colonoscopy.
[2024-09-21 09:54] VITALS: BP 93/56; PULSE 56
== END 2024-09-21 11:05 | disposition home or self-care (01) ==
LOC: ORWHC2ENDO 08:36
PROVIDERS: ATTEND Surgery
DX: Z12.11 Encounter for screening for malignant neoplasm of colon (principal); D12.2 Benign neoplasm of ascending colon; K57.30 Diverticulosis of large intestine without perforation or abscess without bleeding; I10 Essential (primary) hypertension; E78.5 Hyperlipidemia, unspecified; K21.9 Gastro-esophageal reflux disease without esophagitis; G47.33 Obstructive sleep apnea (adult) (pediatric); Z91.89 Other specified personal risk factors, not elsewhere classified; Z79.82 Long term (current) use of aspirin; Z79.899 Other long term (current) drug therapy; Z87.19 Personal history of other diseases of the digestive system; Z88.0 Allergy status to penicillin; Z88.8 Allergy status to other drugs, medicaments and biological substances
CPT/HCPCS: 88305; 45380; J2003; J2704